=== PATIENT | female | born 1980 | race Caucasian/White ===

== ENCOUNTER 2024-08-10 08:47 | Emergency (ER) | payer MEDICAID ==
[~2024-08-10] VITALS: Ht 172.7 cm; Wt 62.6 kg
[2024-08-10 08:57] VITALS: BP 153/88; PULSE 90; RESP 18; TEMP 98.3; O2SAT 100
[2024-08-10] MEDS ORDERED: ALBU8HFA INH (09:11)
[2024-08-10] MEDS ORDERED: FEXO-353 PO (09:11)
--- NOTE | 2024-08-10 09:11 | Physician Documentation ---
HPI ~ General Chief Complaint: See Chief Complaint Stated Complaint: ALLERGIES Time Seen by MD: 08:57 History of Present Illness HPI Comments 44 f presents requesting a medication refill on her Daily and an albuterol inhaler. States she is living in a place where there is a increased amount of animals and believes she is having increased reactions. She says she took 25 mg of Benadryl this morning to help with the symptoms. Without Medications Since: August 10, 2024 Medication Reconciliation Allergies: Coded Allergies: Penicillins (Verified Allergy, Unknown, 08/10/24) amoxicillin (Verified Allergy, Unknown, 08/10/24) Scheduled Fexofenadine Hcl* (Daily*), 1 TAB PO Q12H Scheduled PRN albuterol inhaler (Pro-Air Inhaler), 2 PUFFS INH Q4HPRN PRN for wheezing Review of Systems All Other Systems at this time: Reviewed and Negative ROS As stated above in the HPI, otherwise all systems are reviewed and negative. Physical Exam Physical Exam Vital Signs: Temperature: 98.3, Source: Temporal, Heart Rate: 90, Respiratory Rate: 18, BP: 153/88, Pulse Oximetry: 100, Weight: 62.600 Physical Exam General: Alert, no apparent distress. Respiratory: Lungs clear, no respiratory distress. Chest: No accessory muscle use. Neurologic: Oriented x4. Psychiatric: Normal mood and affect. Skin: Normal color, warm and dry. No edema, no ecchymosis. Progress Results/Orders Results/Orders Vital Signs 08/10/24 08:57 Temp 98.3 Pulse 90 Resp 18 B/P (MAP) 153/88 Pulse Ox 100 Medical Decision Making Findings refiled medications as requested .patient does not present in any acute acute distress and does not show any signs of an acute allergic reaction Differential Dx:Considerations: Include: Adverse circumstances, Economic, Psychosocial, Medical services unavail., Medication refill, Medication non- compliance, Other Departure Disposition: 01 HOME / SELF CARE / HOMELESS Impression: Primary Impression: Medication refill Condition: Stable Discharge Instructions: Allergies, Adult, [id number] Referrals: NO PRIMARY CARE PROVIDER (PCP) Prescriptions albuterol inhaler (Pro-Air Inhaler) 8.5 Gm Inhaler 2 PUFFS INH Q4HPRN PRN for wheezing for 30 Days, #18 GM Prov: YUVAL LOPEZ [employer] 08/10/24 Fexofenadine Hcl* (Daily*) 60 Mg Tablet 1 TAB PO Q12H for allergy symptoms for 20 Days, #40 TAB Prov: YUVAL LOPEZ NP 08/10/24 Education Educated: Patient Educated regarding: diagnosis Signature Scribe Signature: r Attestation: The note accurately reflects work and decisions made by me.Yuval Garza NP 08/10/24 18:10 YUVAL LOPEZ NP August 10, 2024 09:11
== END 2024-08-10 09:27 | disposition home or self-care (01) ==
LOC: ER 08:47
DX: Z00.8 Encounter for other general examination (principal); Z76.0 Encounter for issue of repeat prescription; Z88.0 Allergy status to penicillin
CPT/HCPCS: 99281